=== PATIENT | female | born 2000 | race Caucasian/White ===

== ENCOUNTER 2019-04-26 20:47 | Emergency (ER) | payer OTHER ==
[2019-04-26 20:56] VITALS: BP 152/93
[2019-04-26] MEDS ORDERED: IBUPROFEN 800 MG TABLET PO ONE (21:17)
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
--- NOTE | 2019-04-26 22:11 | RADIOLOGY REPORT (SQ) ---
EXAM DESCRIPTION: XR SHOULDER 2 OR MORE VIEWS COMPLETED DATE/TME: 04/26/2019 21:16 CLINICAL HISTORY: 18 years, Female, pain and injury COMPARISON: None. NUMBER OF VIEWS: 3 TECHNIQUE: 3 view left shoulder LIMITATIONS: None. FINDINGS: Negative for fracture or dislocation. Soft tissues are unremarkable IMPRESSION: Negative exam copyright 2011 [employer]- All Rights Reserved
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
== END 2019-04-26 23:22 | disposition home or self-care (01) ==
LOC: ER 20:47
DX: S43.402A Unspecified sprain of left shoulder joint, initial encounter (principal); V49.40XA Driver injured in collision with unspecified motor vehicles in traffic accident, initial encounter
CPT/HCPCS: 99283